=== PATIENT | female | born 1995 | race Caucasian/White ===

== ENCOUNTER 2017-06-29 16:33 | Emergency (ER) | payer OTHER ==
[2017-06-29 20:04] LABS: ADD MAN DIFF? NO
[2017-06-29 20:07] LABS: WHITE BLOOD COUNT 6.4 10^3/ul (4.8-10.8)
[2017-06-29 20:07] LABS: BASOPHILS % 0.3 % (0.0-2.0); EOSINOPHILS # 0.1 10^3/ul (0.0-0.5); EOSINOPHILS % 1.9 % (0.0-7.0); HEMATOCRIT 40.1 % (37.0-47.0); HEMOGLOBIN 12.9 g/dl (12.0-16.0); LYMPHOCYTES # 3.1 10^3/ul (0.8-2.9); LYMPHOCYTES % 48.3 % (15.0-51.0); MEAN CORPUSCULAR HEMOGLOBIN 24.8 pg (29.0-33.0); MEAN CORPUSCULAR HGB CONC 32.2 g/dl (32.0-37.0); MEAN PLATELET VOLUME 11.7 fl (7.4-10.4); MONOCYTE # 0.4 10^3/ul (0.3-0.9); MONOCYTES % 5.5 % (0.0-11.0); NEUTROPHIL # 2.8 10^3/ul (1.6-7.5); NEUTROPHILS % 43.7 % (39.0-77.0); PLATELET COUNT 295 10^3/UL (140-415); RED BLOOD COUNT 5.21 10^6/ul (4.20-5.40); RED CELL DISTRIBUTION WIDTH 13.5 % (11.5-14.5)
[2017-06-29] MEDS: FAMOTIDINE 20 MG INJ IV (20:07)
[2017-06-29] MEDS: SOD CHLORIDE 0.9% 1,000 ML IV (20:07)
[2017-06-29] MEDS: ONDANSETRON 4 MG INJ IV (20:07)
[2017-06-29 20:27] LABS: ALANINE AMINOTRANSFERASE 19 IU/L (13-69); ALBUMIN/GLOBULIN RATIO 1.38; ALKALINE PHOSPHATASE 70 IU/L (42-121); ANION GAP 17 (8-16); ASPARTATE AMINO TRANSFERASE 19 IU/L (15-46); BLOOD UREA NITROGEN 15 mg/dl (7-20); CALCIUM 9.8 mg/dl (8.4-10.2); CARBON DIOXIDE 25 mmol/L (21-31); CHLORIDE 104 mmol/L (97-110); CREATININE 0.58 mg/dl (0.44-1.00); GLUCOSE 100 mg/dl (70-220); LIPASE 54 U/L (23-300); POTASSIUM 3.7 mmol/L (3.5-5.1); SODIUM 142 mmol/L (135-144); TOTAL PROTEIN 8.6 g/dl (6.1-8.1)
== END 2017-06-29 21:44 | disposition home or self-care (01) ==
LOC: FTE 16:33
DX: K52.9 Noninfective gastroenteritis and colitis, unspecified (principal); R10.2 Pelvic and perineal pain
CPT/HCPCS: 36415; 80053; 81025; 83690; 84703; 85025; 96374; 96375; 99284-25

== ENCOUNTER 2018-03-15 09:14 | Emergency (ER) | payer OTHER ==
[2018-03-15 10:06] LABS: URINE BLOOD (Dip) POC 3+ (NEGATIVE); URINE GLUCOSE (Dip) POC Negative (NEGATIVE); URINE KETONES (Dip) POC Negative (NEGATIVE); URINE LEUKOCYTE EST (Dip) POC Trace (NEGATIVE); URINE NITRITE (Dip) POC Negative (NEGATIVE); URINE TOTAL PROTEIN POC 2+ (NEGATIVE)
[2018-03-15 10:06] LABS: URINE PH (Dip) POC 5.5 (5.0-8.5)
[2018-03-15 10:40] LABS: ADD MAN DIFF? NO
[2018-03-15 10:42] LABS: BASOPHILS % 0.6 % (0.0-2.0); EOSINOPHILS # 0.1 10^3/ul (0.0-0.5); EOSINOPHILS % 2.1 % (0.0-7.0); HEMATOCRIT 38.4 % (37.0-47.0); HEMOGLOBIN 12.1 g/dl (12.0-16.0); LYMPHOCYTES # 2.5 10^3/ul (0.8-2.9); LYMPHOCYTES % 51.7 % (15.0-51.0); MEAN CORPUSCULAR HEMOGLOBIN 23.6 pg (29.0-33.0); MEAN CORPUSCULAR HGB CONC 31.5 g/dl (32.0-37.0); MONOCYTE # 0.4 10^3/ul (0.3-0.9); MONOCYTES % 7.8 % (0.0-11.0); NEUTROPHIL # 1.8 10^3/ul (1.6-7.5); NEUTROPHILS % 37.4 % (39.0-77.0); PLATELET COUNT 288 10^3/UL (140-415); RED BLOOD COUNT 5.12 10^6/ul (4.20-5.40); RED CELL DISTRIBUTION WIDTH 14.2 % (11.5-14.5)
[2018-03-15 10:42] LABS: WHITE BLOOD COUNT 4.9 10^3/ul (4.8-10.8)
== END 2018-03-15 11:55 | disposition home or self-care (01) ==
LOC: FTE 09:14
DX: N93.9 Abnormal uterine and vaginal bleeding, unspecified (principal); N39.0 Urinary tract infection, site not specified; R31.9 Hematuria, unspecified
CPT/HCPCS: 36415; 76830; 76856; 81003; 81025; 85025; 99284-25

== ENCOUNTER 2018-04-20 14:25 | Emergency (ER) | payer OTHER | END 2018-04-20 17:26 | disposition home or self-care (01) | LOC: FTE 17:26 | DX: K11.20 Sialoadenitis, unspecified (principal) | CPT/HCPCS: 99283; Z7502 ==

== ENCOUNTER 2018-04-28 19:35 | Emergency (ER) | payer SELFPAY, OTHER | END 2018-04-28 21:40 | disposition left against medical advice (07) | LOC: FTE 19:35 | DX: Z53.21 Procedure and treatment not carried out due to patient leaving prior to being seen by health care provider (principal) ==

== ENCOUNTER 2018-06-30 00:26 | Emergency (ER) | payer SELFPAY | END 2018-06-30 02:20 | disposition left against medical advice (07) | LOC: FTE 00:26 | DX: Z53.21 Procedure and treatment not carried out due to patient leaving prior to being seen by health care provider (principal) ==

== ENCOUNTER 2018-09-24 16:58 | Emergency (ER) | payer OTHER ==
[2018-09-24 19:30] LABS: URINE BLOOD (Dip) POC Trace-intact (NEGATIVE); URINE GLUCOSE (Dip) POC Negative (NEGATIVE); URINE KETONES (Dip) POC Negative (NEGATIVE); URINE LEUKOCYTE EST (Dip) POC Negative (NEGATIVE); URINE NITRITE (Dip) POC Negative (NEGATIVE); URINE TOTAL PROTEIN POC Negative (NEGATIVE)
[2018-09-24] MEDS: DEXAMETHASONE 10 MG/ML 1 ML INJ IM (19:38)
[2018-09-24] MEDS: KETOROLAC 60 MG INJ IM (19:38)
[2018-09-24] MEDS: DIPHENHYDRAMINE 2.5 MG/ML 5ML CUP PO (19:38)
== END 2018-09-24 20:28 | disposition home or self-care (01) ==
LOC: FTE 16:58
DX: H92.03 Otalgia, bilateral (principal); J01.10 Acute frontal sinusitis, unspecified
CPT/HCPCS: 81003; 81025; 96372; 99284-25